=== PATIENT | female | born 1960 | race Caucasian/White ===

== ENCOUNTER 2016-09-13 13:08 | Outpatient (CLI) | payer OTHER ==
--- NOTE | 2016-09-15 13:29 | DIAGNOSTIC IMAGING REPORT ---
PROCEDURE: MG BILATERAL SCREENING W/CAD INDICATION: SCREENING TECHNIQUE: Bilateral CC and MLO digital views. COMPARISON: Left mammogram and left breast ultrasound 04/15/2013, left mammogram 01/15/2013 and bilateral mammogram 07/04/2012. FINDINGS: Computer-aided detection applied. Moderately dense. No suspicious mass or pleomorphic microcalcifications. IMPRESSION: 1. Negative mammogram RESULT CODE: 1- Negative. A. A negative report should not delay biopsy if a dominant or clinically suspicious mass is present. 10-15% of cancers are not identified by x-ray. B. A negative report may reinforce clinical impression. C. Adenosis and dense breasts may obscure an underlying neoplasm. D. False positive reports average 6-10%. E.. A yearly screening mammogram is recommended. A reminder letter will be scheduled.
[2016-11-24] MEDS ORDERED: VALACYCLOVIR H500 MG PO (11:41)
[2016-11-24] MEDS ORDERED: TYLENOL EXTRA500 MG PO (11:42)
[2016-11-24] MEDS ORDERED: BUPROPION HCL300 MG PO (11:42)
[2016-11-24] MEDS ORDERED: ADVIL200 M1 PO (11:44)
[2016-11-24] MEDS ORDERED: ACETAMINOPHEN P1 TA1 PO (11:47)
== END 2016-09-13 23:00 ==
LOC: MAM SRH 13:08
DX: Z12.31 Encounter for screening mammogram for malignant neoplasm of breast (principal)